=== PATIENT | male | born 1955 | race Caucasian/White ===

== ENCOUNTER 2018-02-23 14:52 | Observation (INO) | payer BC ==
[~2018-02-23] VITALS: Ht 241.3 cm; Wt 95.5 kg
[~2018-02-23 14:52] MED LIST: AMLO10TA PO; ASPI81TA52 PO; ATOR10TA87 PO; DICL75TA5 PO; LEVO100T9 PO; LISI-604 PO; METO50TA16 PO; PANT-47 PO
[2018-02-23 15:18] LABS: BASOPHILS % (AUTO) 0.6 % (0-1); EOSINOPHILS % (AUTO) 0.7 % (0-6); HEMATOCRIT 49.6 % (42.0-52.0); HEMOGLOBIN 16.6 g/dl (14.0-17.9); LYMPHOCYTES # (AUTO) 1.1 X10'3 (1.1-4.8); LYMPHOCYTES % (AUTO) 18.9 % (21-51); MEAN CORPUSCULAR HEMOGLOBIN 32.1 PG (27.0-31.0); MEAN CORPUSCULAR HGB CONC 33.4 % (33.0-36.5); MEAN CORPUSCULAR VOLUME 96.1 FL (78-98); MEAN PLATELET VOLUME 8.5 FL (7.4-10.4); MONOCYTES # (AUTO) 0.4 X10'3 (0-0.9); MONOCYTES % (AUTO) 7.9 % (2-12); NEUTROPHILS # (AUTO) 4.2 X10'3 (1.8-7.7); NEUTROPHILS % (AUTO) 71.9 % (42-75); PLATELET COUNT 178 X10'3 (140-440); RED BLOOD COUNT 5.16 X10'6 (4.70-6.10); RED CELL DISTRIBUTION WIDTH 14.1 % (11.5-14.5); WHITE BLOOD COUNT 5.7 X10'3 (4.5-11.0)
[2018-02-23 15:28] LABS: PARTIAL THROMBOPLASTIN TIME 25 SECONDS (22-32); PROTHROMBIN TIME 10.3 SECONDS (9.0-12.0)
[2018-02-23 15:33] LABS: ALANINE AMINOTRANSFERASE 81 U/L (12-78); ALBUMIN/GLOBULIN RATIO 1.1 (1.1-1.5); ALKALINE PHOSPHATASE 79 IU/L (46-116); ANION GAP 10 (8-16); ASPARTATE AMINO TRANSFERASE 31 U/L (10-37); BILIRUBIN,TOTAL 0.4 MG/DL (0.1-1.0); BLOOD UREA NITROGEN 19 MG/DL (7-18); BUN/CREATININE RATIO 16.2 (5.4-32.0); CALCIUM 9.1 MG/DL (8.5-10.1); CHLORIDE 102 MMOL/L (99-107); CREATININE 1.17 MG/DL (0.60-1.10); GLUCOSE 135 MG/DL (70-104); POTASSIUM 3.7 MMOL/L (3.5-5.1); SODIUM 137 MMOL/L (135-145); TOTAL CARBON DIOXIDE 25.1 MMOL/L (24-32); TOTAL PROTEIN 7.8 G/DL (6.4-8.2); eGFR 63 ML/MIN
[2018-02-23] MEDS ORDERED: magnesium 4gm in 100ml NS 100 ML IV PRN (16:00)
[2018-02-23] MEDS ORDERED: potassium Cl 40MEQ/NS 500ml 500 ML IV PRN ×2 (16:00)
[2018-02-23] MEDS ORDERED: magnesium Cl slow-release 64mg tablet PO PRN (16:00)
[2018-02-23] MEDS ORDERED: acetaminophen 325mg tablet PO PRN (16:00)
[2018-02-23] MEDS ORDERED: morphine 4 MG/ML inj SYRINge IV PRN (16:00)
[2018-02-23] MEDS ORDERED: potassium Cl 20 mEq SR tablet PO PRN ×2 (16:00)
[2018-02-23] MEDS ORDERED: ondansetron/PF 4mg/2ml inj IV PRN (16:00)
[2018-02-23] MEDS ORDERED: magnesium 1gm/100ml D5W IVPB 100 ML IV PRN (16:00)
[2018-02-23] MEDS ORDERED: ATOR20TA66 PO (16:44)
[2018-02-23] MEDS ORDERED: METO25TA6 PO (16:44)
[2018-02-23] MEDS ORDERED: nitroGLYCERIN 0.4mg SUBLingual tab SL PRN ×2 (17:15)
[2018-02-23] MEDS ORDERED: CAFFEINE CITRATE 60 MG/3 ML injection vial IV PRN (17:15)
[2018-02-23] MEDS ORDERED: metoprolol tartrate 1mg/ml inj IV PRN (17:15)
[2018-02-23] MEDS ORDERED: regadenoson 0.4mg/5ml syringe IV ONE (17:15)
[2018-02-23 17:47] LABS: LIPASE 193 U/L (73-393)
[2018-02-23] MEDS: heparin, porcine 5000 units/ml vial SQ SCH (20:21)
[2018-02-23 21:35] VITALS: BP 157/95
[2018-02-24] VITALS (10 sets, daily range): BP systolic 134–172; BP diastolic 79–103
[2018-02-24 04:03] LABS: BASOPHILS # (AUTO) 0.1 X10'3 (0-0.2); BASOPHILS % (AUTO) 1.3 % (0-1); EOSINOPHILS % (AUTO) 0.6 % (0-6); HEMATOCRIT 47.3 % (42.0-52.0); LYMPHOCYTES # (AUTO) 1.2 X10'3 (1.1-4.8); MEAN CORPUSCULAR HEMOGLOBIN 33.1 PG (27.0-31.0); MEAN CORPUSCULAR HGB CONC 33.8 % (33.0-36.5); MEAN CORPUSCULAR VOLUME 97.8 FL (78-98); MEAN PLATELET VOLUME 8.4 FL (7.4-10.4); MONOCYTES # (AUTO) 0.5 X10'3 (0-0.9); MONOCYTES % (AUTO) 10.9 % (2-12); NEUTROPHILS # (AUTO) 2.8 X10'3 (1.8-7.7); NEUTROPHILS % (AUTO) 61.2 % (42-75); PLATELET COUNT 156 X10'3 (140-440); RED BLOOD COUNT 4.84 X10'6 (4.70-6.10); RED CELL DISTRIBUTION WIDTH 14.9 % (11.5-14.5); WHITE BLOOD COUNT 4.5 X10'3 (4.5-11.0)
[2018-02-24 04:20] LABS: ALBUMIN 3.6 G/DL (3.4-5.0); ANION GAP 9 (8-16); BLOOD UREA NITROGEN 13 MG/DL (7-18); BUN/CREATININE RATIO 15.7 (5.4-32.0); CALCIUM 8.6 MG/DL (8.5-10.1); CHLORIDE 103 MMOL/L (99-107); CHOL/HDL RATIO 2.8 (0.00-4.99); CHOLESTEROL 145 MG/DL (0-200); CREATININE 0.83 MG/DL (0.60-1.10); GLUCOSE 106 MG/DL (70-104); HDL CHOLESTEROL 51 MG/DL (35-60); LDL CHOLESTEROL 80 MG/DL (50-100); MAGNESIUM 2.2 MG/DL (1.5-2.4); POTASSIUM 3.9 MMOL/L (3.5-5.1); SODIUM 138 MMOL/L (135-145); TOTAL CARBON DIOXIDE 25.8 MMOL/L (24-32); TRIGLYCERIDES 73 MG/DL (20-135); eGFR > 90 ML/MIN
[2018-02-24] MEDS ORDERED: levoTHYROXINE 100mcg tablet PO SCH (07:00)
[2018-02-24] MEDS: heparin, porcine 5000 units/ml vial SQ SCH (07:39)
[2018-02-24] MEDS ORDERED: regadenoson 0.4mg/5ml syringe IV ONE ×2 (07:45→08:57)
[2018-02-24] MEDS: amLODIPine 5mg tablet PO SCH ×2 (07:53→10:51)
[2018-02-24] MEDS: atorvastatin 20mg tablet PO SCH ×2 (07:53→10:51)
[2018-02-24] MEDS: metoprolol tartrate 25mg tablet PO SCH ×2 (07:53→10:51)
[2018-02-24] MEDS ORDERED: pantoprazole 40mg Tablet.DR PO SCH (08:00)
[2018-02-24] MEDS ORDERED: K and/or MAG REPLACEMENT MC SCH (08:00)
[2018-02-24] MEDS ORDERED: aspirin 81mg tablet.DR PO SCH (08:00)
[2018-02-24] MEDS ORDERED: amLODIPine 5mg tablet PO SCH ×2 (08:00)
[2018-02-24] MEDS ORDERED: CAFFEINE CITRATE 60 MG/3 ML injection vial IV ONE (08:57)
== END 2018-02-24 15:59 | disposition home or self-care (01) ==
LOC: ER 14:52 → ED HOLD 15:56 → SUR 3N 21:35
PROVIDERS: ADMIT Internal Medicine; ATTEND Internal Medicine
DX: R07.2 Precordial pain (principal); I25.10 Atherosclerotic heart disease of native coronary artery without angina pectoris; E03.9 Hypothyroidism, unspecified; E78.00 Pure hypercholesterolemia, unspecified; E78.5 Hyperlipidemia, unspecified; K21.9 Gastro-esophageal reflux disease without esophagitis; I25.2 Old myocardial infarction; I10 Essential (primary) hypertension; Z95.1 Presence of aortocoronary bypass graft; Z82.49 Family history of ischemic heart disease and other diseases of the circulatory system; Z85.118 Personal history of other malignant neoplasm of bronchus and lung; Z85.819 Personal history of malignant neoplasm of unspecified site of lip, oral cavity, and pharynx; Z87.11 Personal history of peptic ulcer disease
CPT/HCPCS: 36415; 71045; 76700; 78452; 80048; 80053; 80061; 83690; 83735; 84443; 84484; 85025; 85610; 85730; 87070; 93005; 93017; 96372; 96374; 99285; A9500; G0378; J1644; J2270